=== PATIENT | female | born 1990 | race American Indian/Alaskan Native ===

== ENCOUNTER 2017-08-29 13:57 | Emergency (ER) | payer MEDICAID ==
[~2017-08-29] VITALS: Ht 162.6 cm; Wt 64.0 kg
[2017-08-29] MEDS ORDERED: HYDR-3965 PO (14:34)
[2017-08-29 14:47] VITALS: BP 135/70
== END 2017-08-29 14:49 | disposition home or self-care (01) ==
LOC: ER 13:58
DX: M27.3 Alveolitis of jaws (principal); Z79.899 Other long term (current) drug therapy
CPT/HCPCS: 99283